=== PATIENT | male | born 1960 | race Caucasian/White ===

== ENCOUNTER 2017-03-09 18:38 | Emergency (ER) | payer MEDICAID ==
--- NOTE | ~2017-03-09 | ER ---
PATIENT'S NAME: LOR MASY [facility] AGE: 56 Y [address] ROOM: [place] [id number] LOCATION: [facility] ADMIT DATE: 03/09/2017 ER/Outpatient Report DISCHARGE DATE: 03/09/2017 FAMILY PHYSICIAN: Physician, Unknown ATTENDING PHYSICIAN: Peterson Hoover Time of Admission: 1838 hours Time of Evaluation: 1855 hours CHIEF COMPLAINT: Fall, forehead laceration. HISTORY OF PRESENT ILLNESS: Lor is a 56-year-old male, presents per EMS service after experiencing a fall in the parking lot at [facility]. He reports he had just come out a mass, walking to his car, and he put his hand on a [place] that he was passing by. He reports felt himself losing his balance and he fell and hit his face on the cement. He at first tells me he does not think he blacked out and then later he tells me he knows he did not. There were some people around in the parking lot, they did call 911. Upon admission, the patient is alert, oriented x4, cooperative. He denies any dizziness, headache, or any blurry vision. He does have some fragmented, random thoughts, but one of the nurses here knows him personally reports this is very normal for him. The patient is a diabetic, non-insulin dependent. His last meal was at 2 o'clock today, Accu-Chek was 95. The last hemoglobin A1c was 5.7 per the patient. The patient has a history of falls, does have brittle bones. He also has an underlying neurologic condition, unknown for sure per records. In review of past medical records, his last CT of the head was August 28, 2014. He does have another documented fall in May 2016. The patient does use a cane at all times. PAST MEDICAL HISTORY: 1. Brittle bones. 2. Hypertension. 3. Type 2 diabetic, non-insulin dependent. 4. Benign prostatic hypertrophy. 5. Hearing loss. 6. Neurologic condition, unknown. 7. History of a leaky valve per the patient. ALLERGIES: NO KNOWN DIAGNOSED ALLERGIES. CURRENT MEDICATIONS: 1. Aspirin 81 mg 1 p.o. daily. PATIENT'S NAME: LOR MAYS [facility] AGE: 56 Y [address] ROOM: [place], [place] [address] LOCATION: [facility] ADMIT DATE: 03/09/2017 ER/Outpatient Report DISCHARGE DATE: 03/09/2017 FAMILY PHYSICIAN: Physician, Unknown ATTENDING PHYSICIAN: Peterson Hoover 2. Calcium 1 p.o. daily. 3. Lisinopril 1 pill p.o. daily, unknown dose. 4. Multivitamin 1 p.o. daily. 5. Flomax 0.4 mg 1 p.o. daily. 6. Vitamin D3 1 p.o. daily. 7. Amlodipine 1 pill p.o. daily, unknown dose. 8. Pseudoephedrine 1 pill p.o. daily. SOCIAL HISTORY: The patient does live here in [place], lives by himself. He has friends that check on him on a regular basis. He is a nonsmoker, denies alcohol and/or drug use. FAMILY HISTORY: Per records history of alcoholism. REVIEW OF SYSTEMS: All systems are reviewed by myself, negative exception of those noted in the HPI. PHYSICAL EXAMINATION: VITAL SIGNS: Current temp within normal limits, pulse 69, respirations 16, blood pressure 151/76, he is 97% on room air. Trina coma Scale is 15. He rates his pain as a 4/10 on a scale of 0-10. GENERAL: The patient is alert, oriented x4, cooperative. He does have an obvious laceration to the left eyebrow, some of the eyebrow hair is gone. HEAD: Normocephalic. EYES: Sclerae are nonicteric. Pupils equal, reactive to light. EOMs intact. NOSE: No other facial trauma is noted. He has no bony tenderness to his facial bones. Facial movements are symmetrical. MOUTH AND THROAT: Oropharynx is clear. Tongue is midline. Mandible, maxilla within normal limits. Left eyebrow is gone for the most part, a 1.5-cm superficial laceration is noted. NECK: He does have some slight vertebral cervical tenderness noted, otherwise no other abrasions or lacerations noted. CHEST AND LUNGS: Lung sounds are clear throughout. Respirations as per respiratory pattern is normal. HEART: Regular, no murmurs appreciated. ABDOMEN: Soft, nontender. He denies any nausea, vomiting. LOWER EXTREMITIES: He has a little scrape to bilateral knees, superficial, nonbleeding. NEURO: Circulation, sensation, and movement are all within normal limits. Strength of upper and lower extremities 5/5. Hand grasps are equal. He does have occasionally a random involuntary movement of the right hand, shaking. The nurse who knows him reports this is very normal for him. Gait; with his cane it is slightly unsteady, but again this is normal for him. PATIENT'S NAME: LOR MAYS [facility] AGE: 56 Y [address] ROOM: [place], [place] [address] LOCATION: [facility] ADMIT DATE: 03/09/2017 ER/Outpatient Report DISCHARGE DATE: 03/09/2017 FAMILY PHYSICIAN: , Neal ATTENDING PHYSICIAN: Peterson Hoover LABORATORY DATA AND X-RAYS: Accu-Chek [address] of the head and neck were performed in which there is no acute fracture or acute abnormalities noted. He has an old compression fracture of T1, otherwise some degenerative changes are noted. No other acute findings are present. ASSESSMENT: 1. Left eyebrow laceration, superficial. 2. Head injury. 3. Fall. PLAN: Dr. Hoover did come and see the patient in addition, plan of care was reviewed with him. We did review CT results with the patient, he was able to the eat some food in which he felt this was very helpful. The laceration is pretty superficial, Dermabond was applied and it held together right quite well. Tylenol 325 mg x2 was given to the patient. We did call a friend from [employer] in which she is a nurse and she will have him stay with them this evening, and she will keep an eye on him. Discharge instructions include head injury precautions, wound care with the Dermabond and also may use Tylenol as needed. He will follow up with his primary care physician this week, we will have him make sure this appointment is made. The patient has a history of falling in which there is some concern with him living by himself. It may be worth reviewing this with his primary care physician next week. The patient's condition is stable, no other concerns at this time. JORDON RASHID APRN FOR MD ROXANA ANDRES/modl /[id number] d: 03/10/17 0014 t: 03/27/17 0059, OUTPATIENT REPORT
== END 2017-03-09 20:32 | disposition disaster alternative care site (69) ==
LOC: GACC 18:38
PROC: 0HQ1XZZ Repair Face Skin, External Approach (ICD-10-PCS; principal; 2017-03-09)
DX: S01.112A Laceration without foreign body of left eyelid and periocular area, initial encounter (principal); I10 Essential (primary) hypertension; E11.9 Type 2 diabetes mellitus without complications; N40.0 Benign prostatic hyperplasia without lower urinary tract symptoms; Z79.82 Long term (current) use of aspirin; Z79.899 Other long term (current) drug therapy; Z98.890 Other specified postprocedural states; W18.09XA Striking against other object with subsequent fall, initial encounter

== ENCOUNTER → 2017-03-09 | Outpatient (CLI) | payer MEDICAID ==
[~2017-03-09] MED LIST: ASPIRIN LO-DOSE81 MG PO; FLOMAX0.4 MG PO; OSCAL + D500 MG PO; PRINIVIL (ZESTR20 MG PO; PRINIVIL (ZESTRI5 MG PO; SUDOGEST30 MG PO; THERA-VITE W/ B1 TAB PO; TOPROL XL 5050 MG PO; TYLENOL325 MG PO; VITAMIN D-32000 UNI1 PO; VITAMIN D-40400 UNIT PO
== END | disposition disaster alternative care site (69) ==
LOC: GAMB 18:27
DX: S09.90XA Unspecified injury of head, initial encounter (principal); S05.32XA Ocular laceration without prolapse or loss of intraocular tissue, left eye, initial encounter; R58 Hemorrhage, not elsewhere classified; X58.XXXA Exposure to other specified factors, initial encounter
CPT/HCPCS: A0425; A0429

== ENCOUNTER 2017-03-20 13:29 | Emergency (ER) | payer MEDICAID ==
--- NOTE | ~2017-03-20 | ER ---
PATIENT'S NAME: MAYS, [facility] AGE: 56 Y [address] ROOM: [place] [address] LOCATION: [facility] ADMIT DATE: 03/20/2017 ER/Outpatient Report DISCHARGE DATE: 03/20/2017 FAMILY PHYSICIAN: Physician, Unknown ATTENDING PHYSICIAN: Eden Mccollum Time Of Arrival: 1328 hours. Time Of Evaluation: 1328 hours. CHIEF COMPLAINT: Fall. HISTORY OF PRESENT ILLNESS: The patient is a 56-year-old male who presents to the emergency department today with chief complaint of fall. The patient does walk with a cane, normally imbalance ways. He was eating a local cafe. There was some uneven ground. He had a ground level fall and hit the front of his head. He denies any loss of consciousness. Pain is currently 4/10 in severity, it is sharp, worse with touch. Denies any nausea, vomiting. Mild headache. PAST MEDICAL HISTORY: Brittle bones, [id number] diabetes mellitus, hypertension, BPH cerebral palsy, and leaky heart valve. PAST SURGICAL HISTORY: Left ankle and right hip. SOCIAL HISTORY: The patient lives in [place], lives by himself. Denies any tobacco, alcohol, or illicit drug use. ALLERGIES: NO KNOWN DRUG ALLERGIES. MEDICATIONS: Please see list. PRIMARY CARE DOCTOR: Dr. Horner. REVIEW OF SYSTEMS: All systems are reviewed by myself and negative with the exception of those discussed in HPI and past medical history. PHYSICAL EXAMINATION: PAT[place]'S [place] [facility] AGE: 56 Y [address] ROOM: [place] [address] LOCATION: [facility] ADMIT DATE: 03/20/2017 ER/Outpatient Report DISCHARGE DATE: 03/20/2017 FAMILY PHYSICIAN: Physician, Unknown ATTENDING PHYSICIAN: Eden Mccollum VITAL SIGNS: Blood pressure 140/71, pulse 61, respiratory rate 20, temperature 98, oxygen saturation 99% on room air. GENERAL: The patient is a 56-year-old male who appears stated age, in no acute distress. HEENT. Head is normocephalic. Does have evidence of trauma with swelling and a laceration to the left forehead. Pupils are equal, round, and reactive to light. TMs are clear. No hemotympanum. No Ross sign. No raccoon eyes. NECK: Supple. There is no midline tenderness to palpation. No step-offs or deformities. CARDIOVASCULAR: Regular rate and rhythm. LUNGS: Clear to auscultation bilaterally. No wheezes, rales, or rhonchi. ABDOMEN: Soft, nontender, and nondistended. No rebound, rigidity, or guarding. MUSCULOSKELETAL: The patient moves all 4 extremities. SKIN: Warm and dry. LABORATORY DATA AND X-RAYS: CT scan of the head and facial bones were obtained. I have discussed results with the radiologist, it shows stable, there is some scalp swelling in left frontal, no evidence of fracture. IMPRESSION: 1. Ground-level fall, mechanical fall. 2. 4.0 cm laceration to the left forehead with simple repair. 3. Initial visit. EMERGENCY DEPARTMENT COURSE: The patient brought back to the examination room. Seen and evaluated by myself. CT imaging is obtained as described above. I have discussed results with the patient. I have recommended suture repair. 5-0 Ethilon is used in simple interrupted fashion to close the wound. There was good cosmesis, good hemostasis. The patient is asked to have the sutures removed in 5 days. He is to follow up with his primary care doctor. I have discussed return to care instructions including worsening symptoms or other concerns to return to the emergency department as soon as possible. The patient is agreeable without further questions. DISPOSITION: The patient discharged to home in good condition. EDEN MCCOLLUM DO PATIENT'S NAME: LOR MAYS [facility] AGE: 56 Y [address] ROOM: [place] [address] LOCATION: [facility] ADMIT DATE: 03/20/2017 ER/Outpatient Report DISCHARGE DATE: 03/20/2017 FAMILY PHYSICIAN: Physician, Unknown ATTENDING PHYSICIAN: Eden Mccollum/payton /[id number] d: 03/20/171805 t: 08/18/17 0156, OUTPATIENT REPORT
== END 2017-03-20 15:26 | disposition disaster alternative care site (69) ==
LOC: GACC 13:29
PROC: 0HQ1XZZ Repair Face Skin, External Approach (ICD-10-PCS; principal; 2017-03-20)
DX: S01.81XA Laceration without foreign body of other part of head, initial encounter (principal); N40.0 Benign prostatic hyperplasia without lower urinary tract symptoms; E11.9 Type 2 diabetes mellitus without complications; I10 Essential (primary) hypertension; Z98.890 Other specified postprocedural states; Z79.899 Other long term (current) drug therapy; Z79.82 Long term (current) use of aspirin; W20.8XXA Other cause of strike by thrown, projected or falling object, initial encounter; Y92.511 Restaurant or cafe as the place of occurrence of the external cause

== ENCOUNTER → 2017-03-20 | Outpatient (CLI) | payer MEDICAID | END | disposition disaster alternative care site (69) | LOC: GAMB 13:12 | DX: S09.93XA Unspecified injury of face, initial encounter (principal); S01.81XA Laceration without foreign body of other part of head, initial encounter; W01.0XXA Fall on same level from slipping, tripping and stumbling without subsequent striking against object, initial encounter | CPT/HCPCS: A0425; A0429 ==